=== PATIENT | female | born 1940 | race Caucasian/White ===

== ENCOUNTER 2016-11-09 07:37 | Observation (INO) | payer MEDICARE ==
[~2016-11-09] VITALS: Ht 160 cm; Wt 61.5 kg
[~2016-11-09 07:37] MED LIST: AMOX1TAB61 PO; ASPI-650 PO; ATEN25TA PO; DOCU100C8 PO; HYDR-3240 PO; HYDR25TA6 PO; LISI-170 PO; PRAV10TA2 PO
[2016-11-09] MEDS ORDERED: LORazepam 2 MG/ML, 1ML IVPush ONE (08:00)
[2016-11-09] MEDS ORDERED: ASPIRIN 81 MG TABLET CHEW PO ONE (08:00)
[2016-11-09] MEDS ORDERED: SODIUM CHLORIDE 0.9% 1,000ML IVBOLUS ONE (08:00)
[2016-11-09] MEDS ORDERED: ASPIRIN 81 MG TABLET CHEW ONE (08:03)
[2016-11-09] MEDS ORDERED: LORazepam 2 MG/ML, 1ML ONE (08:04)
[2016-11-09 08:41] LABS: BLOOD UREA NITROGEN 11 mg/dL (7-18)
[2016-11-09 08:46] LABS: IS PT STATUS REG ER OR PRE ER? YES
[2016-11-09] MEDS ORDERED: hydrALAzine 20 MG/ML, 1ML IVPush PRN (10:30)
[2016-11-09] MEDS ORDERED: LORazepam 2 MG/ML, 1ML IVPush PRN (10:30)
[2016-11-09] MEDS ORDERED: morphine SULFATE 10 MG/ML, 1ML IVPush PRN (10:30)
[2016-11-09] MEDS ORDERED: ACETAMINOPHEN 325 MG TABLET PO PRN (10:30)
[2016-11-09] MEDS ORDERED: ONDANSETRON 2MG/ML, 2ML IVPush PRN (10:30)
[2016-11-09] MEDS ORDERED: POLYETHYLENE GLYCOL 17 GM PACKET PO PRN (10:30)
[2016-11-09] MEDS ORDERED: DOCUSATE 100 MG CAPSULE PO PRN (10:30)
[2016-11-09] MEDS ORDERED: NITROGLYCERIN 0.4 MG BOTTLE (25 TABS) SL PRN (10:30)
[2016-11-09] MEDS ORDERED: HYDROcodone/APAP 5/325 TABLET PO PRN (10:30)
[2016-11-09 11:36] VITALS: BP 154/91
[2016-11-09] MEDS: ENOXAPARIN 40 MG/0.4 ML SQ SCH (12:35)
[2016-11-09 13:09] VITALS: BP 165/101
[2016-11-09 14:53] LABS: IS PT STATUS REG ER OR PRE ER? NO
[2016-11-09 15:43] VITALS: BP 153/91
[2016-11-09] MEDS: HYDROCHLOROTHIAZIDE 25 MG TABLET PO SCH (15:45)
[2016-11-09] MEDS: LISINOPRIL 10 MG TABLET PO SCH (15:46)
[2016-11-09] MEDS: ATENOLOL 25 MG TABLET PO SCH (15:46)
[2016-11-09 19:00] VITALS: BP 152/95
[2016-11-09 20:17] LABS: IS PT STATUS REG ER OR PRE ER? NO
[2016-11-09] MEDS ORDERED: PRAVASTATIN 40 MG TABLET PO SCH (21:00)
[2016-11-10 02:00] VITALS: BP 146/91
[2016-11-10 05:52] LABS: ASPARTATE AMINO TRANSFERASE 44 U/L (15-37); BLOOD UREA NITROGEN 14 mg/dL (7-18)
[2016-11-10] MEDS ORDERED: ASPIRIN 325 MG TABLET EC PO SCH (06:00)
[2016-11-10 07:20] VITALS: BP 165/94
[2016-11-10] MEDS: LISINOPRIL 10 MG TABLET PO SCH (08:09)
[2016-11-10] MEDS: ATENOLOL 25 MG TABLET PO SCH (08:09)
[2016-11-10] MEDS: HYDROCHLOROTHIAZIDE 25 MG TABLET PO SCH (08:12)
[2016-11-10] MEDS ORDERED: POTASSIUM CHLORIDE 20 MEQ TAB.ER.PRT PO ONE (08:30)
[2016-11-10] MEDS ORDERED: REGADENOSON 0.4 MG/5 ML SYRINGE ONE (09:00)
[2016-11-10] MEDS ORDERED: ATENOLOL 25 MG TABLET PO SCH (09:00)
[2016-11-10] MEDS ORDERED: LISINOPRIL 20 MG TABLET PO SCH (09:00)
[2016-11-10] MEDS ORDERED: HYDROCHLOROTHIAZIDE 25 MG TABLET PO SCH (09:00)
[2016-11-10] MEDS: ENOXAPARIN 40 MG/0.4 ML SQ SCH (10:56)
[2016-11-10 13:39] VITALS: BP 168/97
== END 2016-11-10 17:04 | disposition home or self-care (01) ==
LOC: ED 08:24 → EDIP 09:19 → INTOOBSV 09:19 → 5SO 10:38 → UNDODISIN 11-10 17:04
PROVIDERS: ADMIT Internal Medicine; ATTEND Internal Medicine
DX: R07.89 Other chest pain (principal); I11.0 Hypertensive heart disease with heart failure; I50.30 Unspecified diastolic (congestive) heart failure; E78.5 Hyperlipidemia, unspecified; I34.0 Nonrheumatic mitral (valve) insufficiency; R42 Dizziness and giddiness; Z72.0 Tobacco use; Z90.710 Acquired absence of both cervix and uterus; Z90.49 Acquired absence of other specified parts of digestive tract
CPT/HCPCS: 36415; 71010; 78452; 80048; 80053; 80061; 82040; 83735; 84100; 84443; 84484; 85025; 85610; 85730; 93005; 93017; 93306; 96372; 96374; 99285; A9502; C9898; G0378; J1650; J2060; J2785; J7030